=== PATIENT | male | born 1935 | race Hispanic/Latino ===

== ENCOUNTER 2019-10-31 07:23 | Day surgery (SDC) | payer MEDICARE ==
[~2019-10-31 07:23] MED LIST: SODIUM CHLORIDE 0.9% 1000 ML 1,000 ML IV SCH
--- NOTE | 2019-10-31 09:06 | Anesthesia Day of Surgery ---
Anesthesia Day of Surgery - Day of Surgery Patient Examined: Yes Patient H&P Reviewed: Yes Patient is NPO: Yes Cardiac Clearance: Yes
--- NOTE | 2019-10-31 09:06 | Anesthesia Consultation ---
Anesthesia Consult and Med Hx Date of service: 10/31/19 - Airway Anesthetic Teeth Evaluation: Good ROM Head & Neck: Adequate Mental/Hyoid Distance: Adequate Mallampati Class: Class I Intubation Access Assessment: Good - Pulmonary Exam CTA: Yes - Cardiac Exam Cardiac Exam: RRR - Pre-Operative Health Status ASA Pre-Surgery Classification: ASA3 Proposed Anesthetic Plan: MAC - Pulmonary Hx Smoking: Yes (Former) Hx Respiratory Symptoms: No Hx Sleep Apnea: No - Cardiovascular System Hx Hypertension: Yes Hx Coronary Artery Disease: Yes Hx Heart Attack/AMI: No Hx Percutaneous Transluminal Coronary Angioplasty (PTCA): No Hx Cardia Arrhythmia: No Hx Peripheral Vascular Disease: Yes (off plavix since 10/27/2019) - Central Nervous System CVA: No - Gastrointestinal Hx Gastroesophageal Reflux Disease: No - Endocrine Hx Renal Disease: Yes (CKD) Hx Liver Disease: No Hx Non-Insulin Dependent Diabetes: Yes Hx Hypothyroidism: Yes - Other Systems Hx Obesity: No - Additional Comments Anesthesia Medical History Comments: No hx anesthetic complications.
[2019-10-31] MEDS ORDERED: propofoL 200 MG/20 ML VIAL IV ONE ×3 (10:16→10:50)
[2019-10-31] MEDS ORDERED: LIDOCAINE MPF (2%) 20 MG/1 ML VIAL 5 ML ONE (10:30)
[2019-10-31] MEDS ORDERED: EPINEPHrine 1 MG/10 ML SYRINGE ONE (10:31)
--- NOTE | 2019-10-31 11:16 | Procedure Note ---
Date of procedure: 10/31/19 Pre-op diagnosis: GERD and Pernicious Anemia and Colon Polyp Screening and Hematochezia Post-op diagnosis: other (Gastric Polyp (removed by snare polypectomy). Gastritis/ Esophagitis/ Mild to Moderate Hiatal hernai/ Mild to moderate Internal Hemorrhoid (not significant enough for banding)/ Rectal Polyp (removed by cold snare polypectomy)) Procedure: EGD with Snare Polypectomy, use of Stroud Net to retrieve the polyp and Injection (3 cc) of Epinephrine/ Colonoscopy with Cold Snare Polypectomy Anesthesia: MAC Surgeon: ELIO MEJÍA Estimated blood loss: minimal Pathology: list Specimen disposition: to lab Condition: stable Disposition: same day (Treat with PPI and hemorrhoidal medication,encourage fiber intake. Avoid aspirin and NSAID and anticoagulants; otherwise resume home medication and follow up i n 1 to 2 weeks ([phone]).)
--- NOTE | 2019-10-31 11:46 | Operative Report ---
INDICATIONS: An 84-year-old white male who has an underlying history of pernicious anemia. EGD was also done to assess for any evidence of atrophic gastritis and for his GERD symptoms. Procedure was done in the GI lab with assistance of the GI lab team, which included KATERIN Fuentes, micki Ambrocio and with assistance of anesthesia. PROCEDURE IN DETAIL: Procedure was done after getting informed consent with MAC anesthesia. Instrument was passed through the hypopharynx into the esophagus, which showed [id number] erosive esophagitis. Biopsy was done from the distal esophagus. The stomach showed a gastric polyp with ____. Photo documentation was obtained. The polyp was removed using snare polypectomy and retrieved with a Stroud Net. A 3 mL of epinephrine was injected around it to minimize the risk of bleeding. Additional biopsy was also done from the gastric antrum, gastric body and angular incisura to rule out for H. pylori and atrophic gastritis. The pylorus was patent. The duodenum in the first and second portion appeared normal. The stomach also showed mild to moderate hiatal hernia on the retroverted view. There was some mild bleeding from the polypectomy site and minimal bleeding from the biopsy sites. ASSESSMENT: Gastroesophageal reflux disease symptoms, history of pernicious anemia, mild to moderate erosive esophagitis, gastritis, rule out atrophic gastritis as well as H. pylori gastritis, gastric polyp noted in the gastric body with ____ that was removed by snare polypectomy, retrieved with a Stroud Net and 3 mL of epinephrine injected and [id number] hiatal hernia. PLAN: To do a colonoscopy as part of colon polyp screening. The patient is to avoid aspirin and aspirin-related products and anticoagulants for the next 4-5 days. Otherwise, resume home medication, treat the patient with PPI and followup in the office in 1-2 weeks' time. Thank you for the kind referral. JOB# [id number] ZANE/MO
--- NOTE | 2019-10-31 11:51 | Operative Report ---
PROCEDURE: Colonoscopy with snare polypectomy. INDICATIONS FOR PROCEDURE: An 84-year-old white man who had EGD done prior to the colonoscopy because of a history of pernicious anemia and GERD symptoms. EGD had shown presence of a gastric polyp with fronds that was removed by snare polypectomy and retrieved with a Stroud Net and also the site was injected with 3 mL of epinephrine and he also has [id number] hiatal hernia, mild to moderate erosive esophagitis and gastritis. Colonoscopy was done as part of colon polyp screening. The patient has some history of hematochezia. DESCRIPTION OF PROCEDURE: Initial rectal exam was unremarkable. Instrument was passed through the rectum onto the cecum, which was identified with ileocecal valve and the appendiceal orifice. The cecum, ascending colon, transverse colon showed normal mucosa. There was moderate diverticular disease noted in the left colon and there was a polyp noted in the proximal rectum, which was about 10 mm in diameter. This was removed by cold snare polypectomy and retrieved. The rectum did show mild to moderate internal hemorrhoid, but was not significant enough for banding and no banding was done. There was minimal bleeding from the polypectomy site. ASSESSMENT: Colon polyp screening, solitary rectal polyp 10 mm removed by cold snare polypectomy. Mild to moderate internal hemorrhoids not significant enough for banding and moderate left colon diverticular disease. The patient will be asked to avoid aspirin and aspirin-related products for the next few days, treated with PPI. Because of the EGD findings of esophagitis and gastritis, encouraged to take fiber supplements, also will be given. Asked to take hemorrhoidal medication and followup in the office in 1-2 weeks' time. Procedure was done in the GI lab with assistance of the GI lab team, which included micki Swanson and with assistance of Anesthesia. JOB# [id number] ZANE/MO PRINCE
[2019-10-31 13:20] VITALS: BP 102/63
--- NOTE | 2019-10-31 13:30 | Post Anesthesia Evaluation ---
- Post Anesthesia Evaluation Patient Participated: Yes Airway Patent: Yes Stable Respiratory Function: Yes Nausea/Vomiting: No Temp > 96.8F: Yes Pain Manageable: Yes Adequeate Hydration: Yes Anesthesia Complications: No
== END 2019-10-31 12:05 | disposition home or self-care (01) ==
LOC: GIO 07:23
DX: D64.9 Anemia, unspecified (principal); K62.1 Rectal polyp; K31.89 Other diseases of stomach and duodenum; K57.30 Diverticulosis of large intestine without perforation or abscess without bleeding; K21.9 Gastro-esophageal reflux disease without esophagitis; K44.9 Diaphragmatic hernia without obstruction or gangrene; K64.8 Other hemorrhoids; K29.70 Gastritis, unspecified, without bleeding; G62.9 Polyneuropathy, unspecified; E78.00 Pure hypercholesterolemia, unspecified; I10 Essential (primary) hypertension; E03.9 Hypothyroidism, unspecified; E11.42 Type 2 diabetes mellitus with diabetic polyneuropathy; M19.90 Unspecified osteoarthritis, unspecified site; Z96.653 Presence of artificial knee joint, bilateral; Z98.41 Cataract extraction status, right eye; Z88.2 Allergy status to sulfonamides; Z87.891 Personal history of nicotine dependence; Z79.899 Other long term (current) drug therapy; Z98.42 Cataract extraction status, left eye; Z90.49 Acquired absence of other specified parts of digestive tract; Z87.442 Personal history of urinary calculi; Z98.890 Other specified postprocedural states; Z86.2 Personal history of diseases of the blood and blood-forming organs and certain disorders involving the immune mechanism; Z86.73 Personal history of transient ischemic attack (TIA), and cerebral infarction without residual deficits
CPT/HCPCS: 43239; 43251; 45385; 82962; 88305; 88342; J0171; J2704; 36415; 51702; 80053; 81001; 85025; 88341; 99283

== ENCOUNTER 2019-10-31 19:28 | Emergency (ER) | payer MEDICARE ==
[2019-10-31 19:54] VITALS: BP 145/76
[2019-10-31 20:49] LABS: Basophils # (Auto) 0.1 K/mm3 (0.0-0.1); Basophils % (Auto) 0.9 % (0.0-1.8); Eosinophils % (Auto) 0.2 % (0.0-4.3); Hematocrit 44.3 % (35.5-45.6); Hemoglobin 14.3 gm/dl (11.8-15.2); Lymphocytes # (Auto) 0.8 K/mm3 (1.2-5.4); Lymphocytes % (Auto) 7.3 % (13.4-35.0); Mean Corpuscular HGB Conc 32 % (32-34); Mean Corpuscular Volume 99 fl (84-94); Monocytes % (Auto) 8.3 % (0.0-7.3); Platelet Count 256 K/mm3 (140-440); Red Blood Count 4.48 M/mm3 (3.65-5.03); Red Cell Distribution Width 15.6 % (13.2-15.2)
[2019-10-31 20:55] LABS: Alanine Aminotransferase 16 units/L (7-56); Albumin 4.3 g/dL (3.9-5); BUN/Creatinine Ratio 15; Blood Urea Nitrogen 16 mg/dL (9-20); Calcium 9.6 mg/dL (8.4-10.2); Hemolysis Index 16
--- NOTE | 2019-10-31 21:13 | Emergency Department Report ---
HPI - General Chief Complaint: Urogenital-Male Time Seen by Provider: 10/31/19 20:28 - HPI HPI: 84-year-old male presents to the emergency department with a complaint of urinary retention and now some suprapubic abdominal pain. The patient had an outpatient GI procedure done that sounds consistent with an EGD and colonoscopy, with Dr. García. I spoke with Dr García and he says that the patient had a first-degree AV block and his heart rate went down to 49. For this reason anesthesia gave the patient a dose of atropine and since that time the patient has been unable to urinate. He denies any history of prostate cancer. He has never had urinary retention issues in the past. He denies any fever, nausea, vomiting. He has not taken anything for symptoms prior to presentation today. ED Past Medical Hx - Past Medical History Hx Hypertension: Yes Hx Heart Attack/AMI: No Hx Diabetes: Yes Hx Liver Disease: No Hx Renal Disease: Yes (CKD) Hx Arthritis: Yes Hx Kidney Stones: Yes - Surgical History Hx Cholecystectomy: Yes Hx Appendectomy: Yes - Social History Smoking Status: Former Smoker - Medications Home Medications: Home Medications Medication Instructions Recorded Confirmed Last Taken Type Hydrocortisone [Anusol-Hc 2.5% TOP 30 gm RC TID #1 cream..g. 10/31/19 Unknown Rx CREAM] Pantoprazole Sodium [Protonix] 40 mg PO DAILY 30 Days #30 10/31/19 Unknown Rx granpkt. cephALEXin [Keflex] 500 mg PO Q8HR #15 cap 10/31/19 Unknown Rx ED Review of Systems ROS: Stated complaint: POSS ALLERGIC REACTION TO ANESTHESIA Other details as noted in HPI Comment: All other systems reviewed and negative Constitutional: denies: chills, fever Eyes: denies: eye pain, vision change ENT: denies: ear pain, throat pain Respiratory: denies: cough, shortness of breath Cardiovascular: denies: chest pain, palpitations Gastrointestinal: abdominal pain. denies: vomiting Genitourinary: other (urinary retention). denies: discharge Musculoskeletal: denies: back pain, arthralgia Skin: denies: rash, lesions Neurological: denies: headache, weakness Physical Exam - Physical Exam Vital Signs: Vital Signs 10/31/19 19:52 Temperature 98.3 F Pulse Rate 89 Respiratory 18 Rate Blood Pressure 145/76 O2 Sat by Pulse 98 Oximetry Physical Exam: GENERAL: The patient is well-developed well-nourished. HENT: Normocephalic. Atraumatic. Patient has moist mucous membranes. EYES: Extraocular motions are intact. NECK: Supple. Trachea is midline. CHEST/LUNGS: Clear to auscultation. There is no respiratory distress noted. HEART/CARDIOVASCULAR: Regular. There is no tachycardia. ABDOMEN: Abdomen is soft. There is lower abdominal and suprapubic tenderness to palpation. Patient has normal bowel sounds. SKIN: Skin is warm and dry. NEURO: The patient is awake, alert, and oriented. The patient is cooperative. Normal speech. MUSCULOSKELETAL: There is no tenderness or deformity. There is no evidence of acute injury. ED Course Vital Signs 10/31/19 19:52 Temperature 98.3 F Pulse Rate 89 Respiratory 18 Rate Blood Pressure 145/76 O2 Sat by Pulse 98 Oximetry ED Medical Decision Making - Lab Data Result diagrams: 10/31/19 20:21 10/31/19 20:21 - Medical Decision Making This patient presents to the emergency department with urinary retention since having an outpatient GI procedure done. The assessment director thinks it could have been related to the atropine he received secondary to some bradycardia. Patient presents with some pain to the lower abdomen and suprapubic region. A Hopkins catheter was placed and the patient had 900 cc of clear urine drain immediately, and then another 500 cc throughout the rest of his ED course. After the Hopkins catheter was placed the patient had resolution of his discomfort. Labs have been unremarkable including CBC, metabolic panel and urinalysis, except for some hematuria seen, but this is most likely related to the Hopkins catheter placement. The patient was switched to a leg bag and will be discharged home to follow-up with his primary care physician and a urologist. He will return to the ER with any worsening of his symptoms or any acute distress. Critical Care Time: No Critical care attestation.: If time is entered above; I have spent that time in minutes in the direct care of this critically ill patient, excluding procedure time. ED Disposition Clinical Impression: Urinary retention Disposition: DC-01 TO HOME OR SELFCARE Is pt being admited?: No Condition: Stable Instructions: Urinary Retention in Men (ED), Hopkins Catheter Placement and Care (ED), Urinary Leg Bag (GEN) Additional Instructions: Please follow-up with your primary care physician. You also need to follow-up with a urologist regarding the Hopkins catheter placement and the urinary retention. You can see any urologist you like, but I have given you a referral for a local urologist, Dr. Herndon. Return to the emergency department with any worsening of your symptoms or any acute distress. Prescriptions: cephALEXin [Keflex] 500 mg PO Q8HR #15 cap Referrals: ED LOWERY MD [Primary Care Provider] - 2-3 Days GERMAN HERNDON MD [Staff Physician] - 2-3 Days Time of Disposition: 22:07
[2019-10-31 21:52] LABS: Bilirubin,Urine NEG (Negative); Blood,Urine MOD (Negative); Color,Urine Yellow (Yellow); Mucus,Urine FEW /HPF; Protein,Urine <15 mg/dL mg/dL (Negative); Urobilinogen,Urine < 2.0 mg/dL (<2.0)
== END 2019-10-31 23:29 | disposition home or self-care (01) ==
LOC: ED 19:28
DX: R33.9 Retention of urine, unspecified (principal); E11.22 Type 2 diabetes mellitus with diabetic chronic kidney disease; I12.9 Hypertensive chronic kidney disease with stage 1 through stage 4 chronic kidney disease, or unspecified chronic kidney disease; N18.9 Chronic kidney disease, unspecified; Z87.891 Personal history of nicotine dependence; Z90.49 Acquired absence of other specified parts of digestive tract; M19.90 Unspecified osteoarthritis, unspecified site; Z79.899 Other long term (current) drug therapy
CPT/HCPCS: 36415; 51702; 80053; 81001; 85025; 99283